=== PATIENT | male | born 1990 | race Caucasian/White ===

== ENCOUNTER 2021-08-21 02:33 | Inpatient (IN) | payer OTHER ==
[~2021-08-21] VITALS: Ht 182.9 cm; Wt 117.9 kg
[2021-08-21 04:11] LABS: HEMOGLOBIN 14.6 gm/dl (14.0-17.5); RED BLOOD COUNT 4.74 M/UL (4.20-5.50)
[2021-08-21 04:28] LABS: BUN/CREATININE RATIO 17 (0-10)
[2021-08-21] MEDS ORDERED: HUMALOG100 UNIT/3 SC (05:29)
[2021-08-21] MEDS ORDERED: LANTUS SOL100 UNIT/1 SQ (05:30)
[2021-08-21] MEDS ORDERED: BUPROPION XL150 MG PO (05:30)
[2021-08-21] MEDS ORDERED: KENALOG CREAM 015 GM TOP (05:30)
[2021-08-21] MEDS ORDERED: QUETIAPINE FUMA25 MG PO (05:31)
[2021-08-21] MEDS ORDERED: FLUOXETINE HCL40 MG PO (05:31)
[2021-08-21] MEDS ORDERED: AMITRIPTYLINE H25 MG PO (05:31)
[2021-08-21] MEDS ORDERED: PROTONIX 40 MG40 M1 PO (05:32)
[2021-08-21] MEDS ORDERED: COZAAR 50MG TAB50 MG PO (05:32)
--- NOTE | 2021-08-21 15:01 | NUR ---
Patient arrived on floor at approximately 1450. Vitals are stable and within normal limits, except for slightly elevated pulse of 114. Patient did express some discomfort on the surgical site, which was expected. Call light was given and the patient was left with bed in lowest position with the upper rails up.
[2021-08-22 04:47] LABS: WHITE BLOOD COUNT 8.4 K/UL (4.5-11.0)
[2021-08-22 04:48] LABS: HEMOGLOBIN 12.3 gm/dl (14.0-17.5); RED BLOOD COUNT 3.95 M/UL (4.20-5.50)
[2021-08-22 05:14] LABS: BUN/CREATININE RATIO 20 (0-10)
[2021-08-22] MEDS ORDERED: PERCOCET 10-321 EACH PO (11:00)
[2021-08-22] MEDS ORDERED: LOVENOX40 MG/0.4 SQ (11:07)
== END 2021-08-22 13:22 | disposition home or self-care (01) | DRG 493 ==
LOC: ER1 02:33 → 3 EAST 03:49 → CDU 03:49 → 3 EAST 04:48 → MED SURG 4 13:33
PROVIDERS: Family Medicine; Orthopaedic Surgery; ADMIT Internal Medicine
PROC: 0QSJ04Z Reposition Right Fibula with Internal Fixation Device, Open Approach (ICD-10-PCS; 2021-08-21)
PROC: 2W3LX1Z Immobilization of Right Lower Extremity using Splint (ICD-10-PCS; 2021-08-21)
PROC: 0QSG06Z Reposition Right Tibia with Intramedullary Internal Fixation Device, Open Approach (ICD-10-PCS; principal; 2021-08-21 11:31)
DX: S82.251A Displaced comminuted fracture of shaft of right tibia, initial encounter for closed fracture (principal); E87.2 Acidosis; Z20.822 Contact with and (suspected) exposure to COVID-19; S82.231A Displaced oblique fracture of shaft of right tibia, initial encounter for closed fracture; S82.431A Displaced oblique fracture of shaft of right fibula, initial encounter for closed fracture; S82.451A Displaced comminuted fracture of shaft of right fibula, initial encounter for closed fracture; W00.0XXA Fall on same level due to ice and snow, initial encounter; S82.891A Other fracture of right lower leg, initial encounter for closed fracture; E66.9 Obesity, unspecified; F17.210 Nicotine dependence, cigarettes, uncomplicated; F41.9 Anxiety disorder, unspecified; K21.9 Gastro-esophageal reflux disease without esophagitis; I10 Essential (primary) hypertension; E10.65 Type 1 diabetes mellitus with hyperglycemia; F10.10 Alcohol abuse, uncomplicated; F32.A Depression, unspecified; E03.8 Other specified hypothyroidism; Z79.4 Long term (current) use of insulin; Z87.39 Personal history of other diseases of the musculoskeletal system and connective tissue; Z98.890 Other specified postprocedural states; Z88.0 Allergy status to penicillin; Z88.2 Allergy status to sulfonamides; Z82.49 Family history of ischemic heart disease and other diseases of the circulatory system; Z68.35 Body mass index [BMI] 35.0-35.9, adult
CPT/HCPCS: 29515; 36415; 73590; 73600; 76000; 80048; 80053; 82009; 82962; 83036; 84439; 84443; 85025; 93005; 96374; 96375; 99284; C1713; G0480; J1100; J1650; J1885; J2001; J2250; J2270; J2405; J2704; J2795; J3010; J3370; J7030; U0002